=== PATIENT | female | born 1955 | race Caucasian/White ===

== ENCOUNTER 2016-07-13 18:46 | Emergency (ER) | payer MEDICARE, OTHER ==
[~2016-07-13] VITALS: Ht 165.1 cm; Wt 68.4 kg
[2016-07-13 19:53] LABS: BLOOD UREA NITROGEN 19 mg/dL (7-18)
[2016-07-13 20:02] LABS: IS PT STATUS REG ER OR PRE ER? YES
[2016-07-13 20:40] VITALS: BP 141/83
== END 2016-07-13 20:43 | disposition home or self-care (01) ==
LOC: ED 19:40
DX: R07.89 Other chest pain (principal); Z95.0 Presence of cardiac pacemaker
CPT/HCPCS: 36415; 71020; 80048; 82040; 83735; 84484; 85025; 85610; 85730; 93005